=== PATIENT | male | born 1975 | race Caucasian/White ===

== ENCOUNTER → 2024-12-16 11:24 | Outpatient (REF) | payer OTHER, SELFPAY | LOC: RAD 11:24 | PROVIDERS: ATTENDING PHYSICIAN Nurse Practitioner Family | DX: M25.511 Pain in right shoulder (principal) | CPT/HCPCS: 73030 ==

== ENCOUNTER 2025-07-29 06:26 | Day surgery (SDC) | payer OTHER, SELFPAY ==
[2025-07-16 14:11] VITALS: BMI 25.7
[2025-07-29] VITALS (7 sets, daily range): BP systolic 111–137; BP diastolic 77–94; BMI 25.7
[2025-07-29] MEDS: NORMOSOL-R/PLASMALYTE-A 1000 IV (07:57)
[2025-07-29] MEDS: SUBLIMAZE 50 MCG IV ×2 (09:59→10:09)
== END 2025-07-29 11:18 | disposition home or self-care (01) ==
LOC: SDS 06:26
PROVIDERS: ATTENDING PHYSICIAN Orthopaedic Surgery; FAMILY PHYSICIAN Nurse Practitioner Family
DX: M75.111 Incomplete rotator cuff tear or rupture of right shoulder, not specified as traumatic (principal); S46.211A Strain of muscle, fascia and tendon of other parts of biceps, right arm, initial encounter; X58.XXXA Exposure to other specified factors, initial encounter
CPT/HCPCS: 29827; 36415; 93005; C1713